=== PATIENT | female | born 1995 | race Caucasian/White ===

== ENCOUNTER → 2019-05-21 23:42 | Observation (INO) ==
[2019-05-21 21:51] VITALS: BP 140/90
[2019-05-21 22:14] LABS: Basophils % 0.3 %; Eosinophils % 0.6 %; Segmented Neutrophils % 62.1 %
[2019-05-21 22:15] LABS: Eosinophils # 0.1 K/mcL (0.0-0.6); Hematocrit 35.3 % (35.3-44.9); Hemoglobin 12.7 g/dL (11.5-15.4); Immature Granulocytes % 0.4 % (0-4); Lymphocytes # 2.5 K/mcL (0.6-4.6); Lymphocytes % 27.6 %; Mean Corpuscular Hemoglobin 33.1 pg (28.0-33.3); Mean Corpuscular Volume 91.9 fL (83.0-100.0); Mean Platelet Volume 10.8 fL (9.4-12.4); Monocytes # 0.8 K/mcL (0.0-1.3); Neutrophils # 5.6 K/mcL (1.6-8.9); Platelet Count 197 K/mcL (140-400); Red Blood Count 3.84 M/mcL (3.82-4.97); Red Cell Distribution Width 12.8 % (11.5-14.5)
[2019-05-21 22:18] LABS: Prothrombin Time 11.1 Seconds (9.4-12.1)
[2019-05-21 22:21] LABS: Activated Partial Thrombo Time 28.2 Seconds (26.0-36.0)
== END | disposition home or self-care (01) ==
LOC: 1NENULAB
PROVIDERS: ADMIT Advanced Practice Midwife; ATTEND Advanced Practice Midwife

== ENCOUNTER 2019-06-09 03:54 | Inpatient (IN) ==
[2019-06-09] MEDS ORDERED: Metoclopramide 10 MG/2 ML VIAL IVP PRN (04:13)
[2019-06-09] MEDS ORDERED: *HR* FentaNYL (PF) 100 MCG/2 ML VIAL IVP PRN (04:13)
[2019-06-09] MEDS ORDERED: Famotidine 20 MG/2 ML VIAL IVP PRN (04:13)
[2019-06-09] MEDS ORDERED: miSOPROStoL 25 MCG TABLET PO PRN (04:13)
[2019-06-09] MEDS ORDERED: Lidocaine 1% 20 ML MDV INFILT PRN (04:13)
[2019-06-09] MEDS ORDERED: Naloxone 0.4 MG/ML INJ IVP PRN (04:13)
[2019-06-09 04:46] LABS: Basophils % 0.3 %; Eosinophils % 0.3 %; Hematocrit 35.6 % (35.3-44.9); Hemoglobin 12.7 g/dL (11.5-15.4); Immature Granulocytes % 0.3 % (0-4); Lymphocytes # 2.9 K/mcL (0.6-4.6); Mean Corpuscular HGB Conc 35.7 g/dL (31.6-35.5); Mean Corpuscular Hemoglobin 32.6 pg (28.0-33.3); Mean Corpuscular Volume 91.5 fL (83.0-100.0); Mean Platelet Volume 10.8 fL (9.4-12.4); Monocytes # 0.6 K/mcL (0.0-1.3); Monocytes % 6.6 %; Neutrophils # 5.8 K/mcL (1.6-8.9); Platelet Count 195 K/mcL (140-400); Red Blood Count 3.89 M/mcL (3.82-4.97); Red Cell Distribution Width 12.7 % (11.5-14.5); Segmented Neutrophils % 61.5 %; White Blood Count 9.4 K/mcL (4.3-11.1)
[2019-06-09 04:58] LABS: Amphetamine Screen,Urine Negative ng/mL (Cutoff=1000); Barbiturate Screen,Urine Negative ng/mL (Cutoff=200); Benzodiazepines Screen,Urine Negative ng/mL (Cutoff=200); Cannabinoid Screen,Urine Negative ng/mL (Cutoff = 50); Cocaine Screen,Urine Negative ng/mL (Cutoff= 300); Opiate Screen,Urine Negative ng/mL (Cutoff=300); Phencyclidine Screen,Urine Negative ng/mL (Cutoff=25)
[2019-06-09] MEDS ORDERED: Oxytocin 20 units/ LR 1000 mL 20 UNIT/1,000 ML BAG IVC SCH (09:00)
[2019-06-09] MEDS ORDERED: Oxytocin 20 units/ LR 1000 mL 20 UNIT/1,000 ML BAG IVC ONE (09:00)
[2019-06-09] MEDS: Ringers Solution, Lactated 1,000 ML IVC SCH (09:05)
[2019-06-09] MEDS ORDERED: *HR* FentaNYL (PF) 100 MCG/2 ML VIAL EP ONE (09:35)
[2019-06-09] MEDS ORDERED: EPHEDrine 50 MG/ML VIAL IVP PRN (09:35)
[2019-06-09] MEDS ORDERED: *HR* FentaNYL (PF) 100 MCG/2 ML VIAL ONE (15:26)
[2019-06-09] MEDS: Epidural Premix (fent/bupiv) 110 ML EP SCH ×2 (16:48→23:56)
[2019-06-10] MEDS ORDERED: Penicillin G Potassium 5,000,000 UNIT in 0.9 % Sodium Chloride Mini Bag 100 ML IVPB ONE (07:44)
[2019-06-10] MEDS: Ringers Solution, Lactated 1,000 ML IVC SCH (08:14)
[2019-06-10] MEDS: Epidural Premix (fent/bupiv) 110 ML EP SCH ×2 (08:19→14:21)
[2019-06-10] MEDS ORDERED: Methylergonovine 0.2 MG/ML AMPUL IM ONE (12:10)
[2019-06-10] MEDS: Penicillin G Potassium 2,500,000 UNIT in 0.9 % Sodium Chloride 100 ML IVPB SCH ×2 (12:24→16:36)
[2019-06-10] MEDS ORDERED: Chloroprocaine/PF 20 ML VIAL INFILT ONE (17:29)
[2019-06-10] MEDS ORDERED: EPHEDrine 50 MG/ML VIAL ONE (17:30)
[2019-06-10] MEDS ORDERED: *HR* Oxytocin 10 UNIT/ML VIAL IM ONE (17:30)
[2019-06-10] MEDS ORDERED: CeFAZolin 2,000 MG/50 ML BAG IVPB ONE (17:31)
[2019-06-10] MEDS ORDERED: Famotidine 20 MG/2 ML VIAL IVP ONE (17:31)
[2019-06-10] MEDS ORDERED: Metoclopramide 10 MG/2 ML VIAL IVP ONE (17:31)
[2019-06-10] MEDS ORDERED: Ondansetron 4 MG/2 ML VIAL ONE (17:40)
[2019-06-10] MEDS ORDERED: *HR* Morphine Sulfate/PF 10 MG/10 ML AMPUL ONE (17:40)
[2019-06-10] MEDS ORDERED: Ringers Solution, Lactated 1,000 ML IVC SCH ×2 (17:45→22:34)
[2019-06-10] MEDS ORDERED: Oxytocin 20 units/ LR 1000 mL 20 UNIT/1,000 ML BAG IVC SCH ×2 (17:45→22:34)
[2019-06-10] MEDS ORDERED: Ibuprofen 400 MG TABLET PO PRN (17:52)
[2019-06-10] MEDS ORDERED: Ondansetron 4 MG/2 ML VIAL IVP PRN ×2 (17:52→22:34)
[2019-06-10] MEDS ORDERED: *HR* OxyCODONE/APAP 5/325 TABLET PO PRN (17:52)
[2019-06-10] MEDS ORDERED: Acetaminophen IV 1,000 MG/100 ML INFUS..BTL IVPB ONE (17:53)
[2019-06-10] MEDS ORDERED: Ringers Solution, Lactated 1,000 ML ONE (17:55)
[2019-06-10] MEDS ORDERED: Lidocaine/EPI 1:200k 2% PF 20 ML VIAL ONE (18:03)
[2019-06-10] MEDS ORDERED: Acetaminophen IV 1,000 MG/100 ML INFUS..BTL ONE (18:08)
[2019-06-10] MEDS ORDERED: *HR* Promethazine 25 MG/ML VIAL ONE (18:17)
[2019-06-10] MEDS ORDERED: Ketamine *HR* 500 MG/10 ML MDV ONE (18:35)
[2019-06-10] MEDS ORDERED: Naloxone 0.4 MG/ML INJ IVP PRN (22:34)
[2019-06-10] MEDS ORDERED: Simethicone 80 MG TAB.CHEW PO PRN (22:34)
[2019-06-10] MEDS ORDERED: Metoclopramide 10 MG/2 ML VIAL IVP PRN (22:34)
[2019-06-10] MEDS ORDERED: Sennosides 8.6 MG TABLET PO PRN (22:34)
[2019-06-11] MEDS: *HR* OxyCODONE Immed Rel 5 MG TABLET PO PRN ×4 (04:49→19:45)
[2019-06-11 06:28] LABS: Basophils % 0.3 %; Eosinophils % 0.1 %; Hematocrit 33.4 % (35.3-44.9); Hemoglobin 11.9 g/dL (11.5-15.4); Immature Granulocytes % 0.4 % (0-4); Lymphocytes # 1.7 K/mcL (0.6-4.6); Lymphocytes % 11.3 %; Mean Corpuscular HGB Conc 35.6 g/dL (31.6-35.5); Mean Corpuscular Hemoglobin 32.5 pg (28.0-33.3); Mean Corpuscular Volume 91.3 fL (83.0-100.0); Mean Platelet Volume 11.1 fL (9.4-12.4); Monocytes # 1.3 K/mcL (0.0-1.3); Neutrophils # 11.7 K/mcL (1.6-8.9); Platelet Count 166 K/mcL (140-400); Red Blood Count 3.66 M/mcL (3.82-4.97); Red Cell Distribution Width 12.9 % (11.5-14.5); Segmented Neutrophils % 78.9 %
[2019-06-11 06:34] LABS: White Blood Count 14.8 K/mcL (4.3-11.1)
[2019-06-11] MEDS: Ibuprofen 600 MG TABLET PO PRN ×3 (08:52→22:29)
[2019-06-11] MEDS: Prenatal Vit/FA 1 EACH TABLET PO SCH (08:53)
[2019-06-11] MEDS: cephALEXin 500 MG CAPSULE PO SCH ×3 (10:38→19:45)
[2019-06-11] MEDS: metroNIDAZOLE 500 MG TABLET PO SCH ×3 (10:38→19:48)
[2019-06-11] MEDS: Acetaminophen 325 MG TABLET PO PRN ×2 (10:38→19:45)
[2019-06-12] MEDS: *HR* OxyCODONE Immed Rel 5 MG TABLET PO PRN ×2 (00:47→06:58)
[2019-06-12] MEDS: Ibuprofen 600 MG TABLET PO PRN (06:57)
[2019-06-12 08:12] VITALS: BP 123/86
[2019-06-12] MEDS: Prenatal Vit/FA 1 EACH TABLET PO SCH (08:14)
[2019-06-12] MEDS: metroNIDAZOLE 500 MG TABLET PO SCH (08:15)
[2019-06-12] MEDS: cephALEXin 500 MG CAPSULE PO SCH (08:15)
== END 2019-06-12 12:11 | disposition home or self-care (01) | DRG 788 ==
LOC: 1NENULAB 03:54 → 1NENUOBS 06-10 21:45
PROVIDERS: ADMIT Obstetrics & Gynecology; ATTEND Obstetrics & Gynecology

== ENCOUNTER 2021-10-02 07:20 | Inpatient (IN) ==
[2021-10-02 06:12] LABS: Basophils % 0.3 %; Eosinophils # 0.1 K/mcL (0.0-0.6); Eosinophils % 0.7 %; Hematocrit 36.3 % (35.3-44.9); Hemoglobin 12.8 g/dL (11.5-15.4); Immature Granulocytes % 0.3 % (0-4); Lymphocytes # 2.6 K/mcL (0.6-4.6); Lymphocytes % 29.1 %; Mean Corpuscular HGB Conc 35.3 g/dL (31.6-35.5); Mean Corpuscular Hemoglobin 31.8 pg (28.0-33.3); Mean Corpuscular Volume 90.3 fL (83.0-100.0); Mean Platelet Volume 11.2 fL (9.4-12.4); Monocytes # 0.6 K/mcL (0.0-1.3); Monocytes % 6.2 %; Neutrophils # 5.6 K/mcL (1.6-8.9); Platelet Count 191 K/mcL (140-400); Red Blood Count 4.02 M/mcL (3.82-4.97); Red Cell Distribution Width 12.6 % (11.5-14.5); Segmented Neutrophils % 63.4 %; White Blood Count 8.9 K/mcL (4.3-11.1)
[2021-10-02 06:19] LABS: Bacteria,Urine Many per hpf (None-Few); Bilirubin,Urine Negative (Negative); Blood,Urine Small (Negative); Clarity,Urine Turbid (Clear); Color,Urine Light-Yellow (Yellow); Glucose,Urine (UA) Normal (Normal); Ketones,Urine Negative (Negative); Leukocyte Esterase,Urine Large (Negative); Mucus,Urine Few per lpf (None-Few); Nitrite,Urine Negative (Negative); PH,Urine 7.5 pH Units (5.0-8.0); Protein,Urine >=600 mg/dL (Neg-Trace); Specific Gravity,Urine 1.021 (1.010-1.025); Squamous Epithelial Cell,Urine Moderate per hpf (None-Few); Urobilinogen,Urine Normal (Normal); WBC,Urine 50-100 per hpf (0-3)
[2021-10-02 06:28] LABS: Alanine Aminotransferase 7 Units/L (7-52); Aspartate Amino Transferase 14 Units/L (13-39); BUN/Creatinine Ratio 15 (6-26); Blood Urea Nitrogen 10 mg/dL (6-20); Lactate Dehydrogenase 196 Units/L (140-271); Uric Acid 4.3 mg/dL (2.3-7.6); eGFR For African Americans > 60 (> 60); eGFR For Non-African Americans > 60 (> 60)
[2021-10-02 06:47] LABS: Creatinine,Urine 58 mg/dL; Protein/Creatinine Ratio,Urine 26.52 mg/mg (0.00-0.20)
[~2021-10-02 07:20] MED LIST: *HR* Labetalol 20 MG/4 ML SYRINGE IVP PRN; *HR* Labetalol 20 MG/4 ML SYRINGE IVP STA; Betamethasone Acet/SodPhos 30 MG/5 ML VIAL IM SCH; Calcium Gluconate 1,000 MG/10 ML VIAL IVP PRN; CeFAZolin 2,000 MG/120 ML BAG IVPB ONE; Famotidine 20 MG/2 ML VIAL IVP ONE; Magnesium Sulf 20 gm/SW 500mL 20 GM/500 ML IV.SOLN IVC SCH; Metoclopramide 10 MG/2 ML VIAL IVP ONE; Oxytocin 30 UNIT/503 ML BAG IVC SCH; Ringers Solution, Lactated 1,000 ML IVC SCH; Ringers Solution, Lactated 1,000 ML ONE
[2021-10-02 08:12] LABS: Bacteria,Urine Moderate per hpf (None-Few); Bilirubin,Urine Negative (Negative); Blood,Urine Small (Negative); Clarity,Urine Ex.Turbid (Clear); Color,Urine Yellow (Yellow); Glucose,Urine (UA) Normal (Normal); Hyaline Casts,Urine Few per lpf (None Seen); Ketones,Urine Negative (Negative); Leukocyte Esterase,Urine Large (Negative); Mucus,Urine Few per lpf (None-Few); Nitrite,Urine Negative (Negative); PH,Urine 7.5 pH Units (5.0-8.0); Protein,Urine >=600 mg/dL (Neg-Trace); Specific Gravity,Urine 1.027 (1.010-1.025); Squamous Epithelial Cell,Urine Moderate per hpf (None-Few); Transitional Epi Cells,Urine Few per hpf (None-Few); Urobilinogen,Urine Normal (Normal); WBC,Urine TNTC per hpf (0-3)
[2021-10-02] MEDS ORDERED: *HR* Labetalol 20 MG/4 ML SYRINGE IVP ONE ×2 (08:28→08:31)
[2021-10-02 08:36] LABS: Protein/Creatinine Ratio,Urine 19.06 mg/mg (0.00-0.20)
[2021-10-03 11:21] LABS: Amphetamine Screen,Urine Negative ng/mL (Cutoff=1000); Barbiturate Screen,Urine Negative ng/mL (Cutoff=200); Benzodiazepines Screen,Urine Negative ng/mL (Cutoff=200); Cannabinoid Screen,Urine Negative ng/mL (Cutoff = 50); Cocaine Screen,Urine Negative ng/mL (Cutoff= 300); Opiate Screen,Urine Negative ng/mL (Cutoff=300); Phencyclidine Screen,Urine Negative ng/mL (Cutoff=25)
== END 2021-10-02 12:00 | disposition short-term general hospital (02) | DRG 831 ==
LOC: 1NENULAB
PROVIDERS: ADMIT Obstetrics & Gynecology; ATTEND Obstetrics & Gynecology